=== PATIENT | male | born 2000 | race Two or more races ===

== ENCOUNTER 2023-01-02 06:53 | Emergency (ER) | payer MEDICAID ==
[~2023-01-02] VITALS: Ht 160 cm; Wt 72.4 kg
[2023-01-02] MEDS ORDERED: VISCOUS LIDOCAINE 2% 15 ML UDC PO STA (07:31)
[2023-01-02] MEDS ORDERED: MAGNESIUM/ALUMINUM HYDROXIDE/SIMETHICONE 30ML UDC PO STA (07:31)
[2023-01-02] MEDS ORDERED: FAMOTIDINE 20MG TABLET PO ONE (07:45)
[2023-01-02 08:52] LABS: BASOPHILS % 0.5 % (0.0-2.0); EOSINOPHILS % 0.4 % (0.0-5.0); HEMATOCRIT. 46.8 % (42.0-52.0); HEMOGLOBIN. 15.5 g/dL (14.0-18.0); LYMPHOCYTES % 17.9 % (20.0-50.0); MEAN CORPUSCULAR HEMOGLOBIN 26.8 pg (28.0-32.0); MEAN PLATELET VOLUME 8.5 fl (7.4-10.4); MONOCYTES % 4.9 % (2.0-8.0); NEUTROPHILS % 76.3 % (40.0-76.0); PLATELET 269 x1000/uL (130-400); RED BLOOD CELL COUNT 5.77 mill/uL (4.7-6.1); RED CELL DISTRIBUTION WIDTH 13.7 % (11.6-14.6)
[2023-01-02 09:01] LABS: CHLORIDE 101 mEq/L (98-107)
[2023-01-02] MEDS ORDERED: CEFTRIAXONE 1GM PREMIX 50 ML IV ONE (09:45)
[2023-01-02] MEDS ORDERED: METRONIDAZOLE 500 MG PREMIX 100 ML IV ONE (09:45)
[2023-01-02] MEDS ORDERED: METRONIDAZOLE 500MG TABLET PO NR (10:30)
[2023-01-02] MEDS ORDERED: METR-167 MT (10:30)
[2023-01-02] MEDS ORDERED: LEVOFLOXACIN 500MG TABLET PO NR (10:30)
[2023-01-02] MEDS ORDERED: LEVO750T68 MT (10:30)
[2023-01-02 10:48] VITALS: BP 131/86
== END 2023-01-02 10:49 | disposition home or self-care (01) ==
LOC: ER 07:08
DX: K81.9 Cholecystitis, unspecified (principal)
CPT/HCPCS: 36415; 76705; 80053; 85025; 99284; J3490